=== PATIENT | female | born 1985 | race Two or more races ===

== ENCOUNTER → 2019-11-12 | Outpatient (REF) | payer OTHER ==
[2019-11-12 13:46] LABS: ALBUMIN 3.9 GM/DL (3.2-5.2); ALT/SGPT 26 U/L (12-78); BILIRUBIN,TOTAL 0.3 MG/DL (0.2-1.0); BLOOD UREA NITROGEN 21 MG/DL (7-18); CALCIUM LEVEL 8.5 MG/DL (8.5-10.1); CARBON DIOXIDE LEVEL 26 MEQ/L (21-32); CHLORIDE LEVEL 110 MEQ/L (98-107); CHOLESTEROL LEVEL 207 MG/DL (<200); CREATININE FOR GFR 0.84 MG/DL (0.55-1.30); FREE T4 0.93 NG/DL (0.76-1.46); GLOMERULAR FILTRATION RATE > 60.0 (>60); GLUCOSE, FASTING 89 MG/DL (70-100); HDL CHOLESTEROL 79 MG/DL (>40); LDL CHOLESTEROL 118 MG/DL (<100); NON-HDL-C 128 MG/DL; POTASSIUM SERUM 4.3 MEQ/L (3.5-5.1); SODIUM LEVEL 141 MEQ/L (136-145); TOTAL PROTEIN 6.5 GM/DL (6.4-8.2); TRIGLYCERIDES LEVEL 52 MG/DL (<150)
[2019-11-12 13:49] LABS: TOTAL 25(OH) VITAMIN D 38.6 NG/ML (30.0-100.0)
[2019-11-12 14:29] LABS: HEMOGLOBIN 12.8 g/dl (12.0-15.5); MEAN CORPUSCULAR HEMOGLOBIN 30.8 pg (27.0-33.0); MEAN CORPUSCULAR VOLUME 96.4 fl (80.0-96.0); RED BLOOD COUNT 4.15 10^6/uL (4.00-5.40)
[2019-11-12 14:52] LABS: PLATELET COUNT, AUTOMATED 94 10^3/uL (150-450); WHITE BLOOD COUNT 15.2 10^3/uL (4.0-10.0)
[2019-11-12 14:59] LABS: ANISOCYTOSIS 1+; ATYPICAL LYMPH 2 % (0-5); BASOPHILS 3 % (0-1); EOSINOPHILS 3 % (0-3); HYPOCHROMASIA 1+; LYMPHOCYTES 68 % (16-44); MONOCYTES 1 % (0-5); NEUTROPHILS 23 % (28-66)
[2019-11-12 15:00] LABS: BURR CELLS 1+; PLATELET ESTIMATE DECREASED (NORMAL)
== END ==
LOC: M LABDRWAD 12:29
PROVIDERS: ATTEND Physician Assistant
DX: Z13.220 Encounter for screening for lipoid disorders (principal); Z13.29 Encounter for screening for other suspected endocrine disorder; Z11.1 Encounter for screening for respiratory tuberculosis

== ENCOUNTER → 2020-02-14 | Outpatient (REF) | payer OTHER ==
[2020-02-14 14:47] LABS: FOLLICLE STIMULATING HORMONE 3.4 mIU/mL; FREE T4 0.91 NG/DL (0.76-1.46); LUTEINIZING HORMONE 5.5 mIU/mL; PROGESTERONE 30.01 NG/ML; PROLACTIN 7.2 NG/ML; THYROID STIMULATING HORMONE 4.79 uIU/ML (0.358-3.740)
== END ==
LOC: M PLALAB 12:04
PROVIDERS: ATTEND Specialist
DX: N92.6 Irregular menstruation, unspecified (principal)

== ENCOUNTER → 2020-04-08 | Outpatient (REF) | payer OTHER ==
[2020-04-08 18:14] LABS: BASO # 0.1 10^3/uL (0.0-0.2); BASO % 0.3 % (0.0-1.0); EOS # 0.2 10^3/uL (0.0-0.5); EOS % 1.1 % (0.0-3.0); HEMATOCRIT 37.8 % (36.0-47.0); HEMOGLOBIN 12.3 g/dl (12.0-15.5); LYMPH # 11.8 10^3/uL (1.5-5.0); LYMPH % 69.5 % (24.0-44.0); MEAN CORPUSCULAR HEMOGLOBIN 30.1 pg (27.0-33.0); MEAN CORPUSCULAR HGB CONC 32.5 g/dl (32.0-36.5); MEAN CORPUSCULAR VOLUME 92.6 fl (80.0-96.0); MONO # 0.3 10^3/uL (0.0-0.8); MONO % 1.9 % (0.0-5.0); NEUTROPHILS # 4.6 10^3/uL (1.5-8.5); PLATELET COUNT, AUTOMATED 106 10^3/uL (150-450); RED BLOOD COUNT 4.08 10^6/uL (4.00-5.40)
[2020-04-08 18:53] LABS: ALBUMIN 3.6 GM/DL (3.2-5.2); ALT/SGPT 21 U/L (12-78); BILIRUBIN,TOTAL 0.3 MG/DL (0.2-1.0); BLOOD UREA NITROGEN 18 MG/DL (7-18); CALCIUM LEVEL 8.7 MG/DL (8.5-10.1); CARBON DIOXIDE LEVEL 27 MEQ/L (21-32); CHLORIDE LEVEL 106 MEQ/L (98-107); CREATININE FOR GFR 0.74 MG/DL (0.55-1.30); FREE T4 0.87 NG/DL (0.76-1.46); GLOMERULAR FILTRATION RATE > 60.0 (>60); GLUCOSE, FASTING 68 MG/DL (70-100); SODIUM LEVEL 136 MEQ/L (136-145); TOTAL PROTEIN 6.6 GM/DL (6.4-8.2)
[2020-04-09 08:57] LABS: TOTAL 25(OH) VITAMIN D 46.6 NG/ML (30.0-100.0)
== END ==
LOC: M LABDRWAD 17:04
PROVIDERS: ATTEND Physician Assistant
DX: C91.10 Chronic lymphocytic leukemia of B-cell type not having achieved remission (principal); D69.6 Thrombocytopenia, unspecified; Z13.29 Encounter for screening for other suspected endocrine disorder

== ENCOUNTER → 2020-05-28 | Outpatient (REF) | payer OTHER ==
[2020-06-30 11:35] LABS: BASO # 0.1 10^3/uL (0.0-0.2); BASO % 0.5 % (0.0-1.0); EOS # 0.2 10^3/uL (0.0-0.5); EOS % 1.3 % (0.0-3.0); HEMATOCRIT 40.9 % (36.0-47.0); LYMPH # 9.6 10^3/uL (1.5-5.0); LYMPH % 71.3 % (24.0-44.0); MEAN CORPUSCULAR HEMOGLOBIN 31.3 pg (27.0-33.0); MEAN CORPUSCULAR HGB CONC 31.8 g/dl (32.0-36.5); MEAN CORPUSCULAR VOLUME 98.3 fl (80.0-96.0); MONO # 0.5 10^3/uL (0.0-0.8); MONO % 3.4 % (0.0-5.0); NEUTROPHILS # 3.1 10^3/uL (1.5-8.5); NEUTROPHILS % 23.4 % (36.0-66.0); PLATELET COUNT, AUTOMATED 121 10^3/uL (150-450); RED BLOOD COUNT 4.16 10^6/uL (4.00-5.40)
[2020-06-30 11:37] LABS: WHITE BLOOD COUNT 13.4 10^3/uL (4.0-10.0)
[2020-07-13 10:41] LABS: BLOOD UREA NITROGEN 29 MG/DL (7-18); CARBON DIOXIDE LEVEL 28 MEQ/L (21-32); CHLORIDE LEVEL 106 MEQ/L (98-107); CREATININE FOR GFR 0.81 MG/DL (0.55-1.30); GLOMERULAR FILTRATION RATE > 60.0 (>60); GLUCOSE, FASTING 89 MG/DL (70-100); POTASSIUM SERUM 4.8 MEQ/L (3.5-5.1); SODIUM LEVEL 140 MEQ/L (136-145)
[2020-07-13 10:42] LABS: ALBUMIN 3.8 GM/DL (3.2-5.2); ALT/SGPT 22 U/L (12-78); BILIRUBIN,TOTAL 0.2 MG/DL (0.2-1.0); CALCIUM LEVEL 9.4 MG/DL (8.5-10.1); CHOLESTEROL LEVEL 210 MG/DL (<200); FREE T4 0.88 NG/DL (0.76-1.46); HDL CHOLESTEROL 82 MG/DL (>40); LDL CHOLESTEROL 117 MG/DL (<100); NON-HDL-C 128 MG/DL; TOTAL 25(OH) VITAMIN D 52.3 NG/ML (30.0-100.0); TOTAL PROTEIN 6.9 GM/DL (6.4-8.2); TRIGLYCERIDES LEVEL 54 MG/DL (<150)
== END ==
LOC: M LABDRWAD 10:37
PROVIDERS: ATTEND Physician Assistant
DX: Z13.29 Encounter for screening for other suspected endocrine disorder (principal); Z13.220 Encounter for screening for lipoid disorders

== ENCOUNTER → 2021-03-18 | Outpatient (CLI) | payer OTHER ==
--- NOTE | 2021-03-18 15:32 | REP ---
INDICATION: LETICIA DIAG MAMMO/R BREAST LUMP. COMPARISON: None TECHNIQUE: Digital mammography was performed bilaterally in the CC and MLO projections using both 2D and 3D modalities. In addition, spot-compression views of the right breast were obtained slightly upper slightly outer retroareolar region over the site of a pea-sized palpable mass. Diagnostic ultrasonography was also performed in this region. Both Sandra and non Sandra views were obtained. FINDINGS: The breasts are symmetric in size and shape. There are no masses. There is no internal architectural distortion. There are no suspicious micro calcific clusters. There is no skin thickening or nipple retraction. Diagnostic digital magnified spot compression views of the right breast over the region of interest indicated by the technologist placing a triangular-shaped marker on the skin shows no abnormality. Diagnostic ultrasonography right breast region of interest shows a solid 2 x 0.5 x 0.7 cm size nodule. Color Doppler on this shows internal blood flow. Due to its close proximity to the underlying breast implant shear wave elastography could not be performed. The Volpara volumetric breast density pattern is b. IMPRESSION: BIRADS/ACR category 4. There is a solid right breast nodule seen ultrasonographically only at the site of a clinically palpable mass. Biopsy is recommended. This patient's Tyrer-Cuzick lifetime breast cancer risk assessment score is 10.8 %. This mammogram was interpreted with the aid of an FDA-approved computer-aided detection system. The patient states she had a clinical breast exam in February 2021. The patient letter being requested is M4 RECOMMENDATION: As above). <Electronically signed by Jose Alfredo Hill > 03/18/21 [id number]
== END ==
LOC: M WHC 13:28
PROVIDERS: ATTEND Specialist
DX: Z12.31 Encounter for screening mammogram for malignant neoplasm of breast (principal); N63.15 Unspecified lump in the right breast, overlapping quadrants; Z98.82 Breast implant status
CPT/HCPCS: 76642; 77066; G0279

== ENCOUNTER 2021-04-03 16:13 | Emergency (ER) | payer OTHER ==
[~2021-04-03] VITALS: Ht 170.2 cm; Wt 70.0 kg
[2021-04-03] MEDS ORDERED: PARO40TA2 (16:21)
[2021-04-03] MEDS ORDERED: CETI-24 (16:21)
[2021-04-03 18:40] LABS: HEMATOCRIT 41.8 % (36.0-47.0); HEMOGLOBIN 13.2 g/dl (12.0-15.5); MEAN CORPUSCULAR HEMOGLOBIN 30.4 pg (27.0-33.0); MEAN CORPUSCULAR HGB CONC 31.6 g/dl (32.0-36.5); MEAN CORPUSCULAR VOLUME 96.3 fl (80.0-96.0); PLATELET COUNT, AUTOMATED 104 10^3/uL (150-450); RED BLOOD COUNT 4.34 10^6/uL (4.00-5.40)
[2021-04-03 18:54] LABS: WHITE BLOOD COUNT 18.6 10^3/uL (4.0-10.0)
[2021-04-03 19:00] LABS: ALBUMIN 3.8 GM/DL (3.2-5.2); ALT/SGPT 24 U/L (12-78); BILIRUBIN,DIRECT 0.1 MG/DL (0.0-0.2); BILIRUBIN,TOTAL 0.3 MG/DL (0.2-1.0); LIPASE 123 U/L (73-393); TOTAL PROTEIN 6.9 GM/DL (6.4-8.2)
[2021-04-03 19:54] LABS: ATYPICAL LYMPH 5 % (0-5); BASOPHILS 1 % (0-1); EOSINOPHILS 1 % (0-3); LYMPHOCYTES 77 % (16-44); MONOCYTES 2 % (0-5); NEUTROPHILS 14 % (28-66)
[2021-04-03] MEDS ORDERED: PROMETHAZINE INJ 25 MG/ML VIAL (J2550) IV ONE (19:55)
[2021-04-03] MEDS ORDERED: NS 1,000 ML IV ONE (19:55)
[2021-04-03] MEDS ORDERED: MORPHINE 2 MG/ML 1ML VIAL (J2270) IV ONE (19:55)
[2021-04-03 20:02] LABS: OVALOCYTES 1+; POIKILOCYTOSIS 1+; SMUDGE CELLS 3+
[2021-04-03 20:03] LABS: PLATELET ESTIMATE NORMAL (NORMAL)
[2021-04-03 20:04] LABS: GIANT PLATELETS 1+
[2021-04-03 20:23] LABS: HCG, SERUM QUANTITATIVE < 1.0 MIU/ML
[2021-04-03] MEDS ORDERED: ISOVUE-370 76% 100ML VIAL As Ordered ONE (21:41)
--- NOTE | 2021-04-03 21:45 | REPVR ---
PROCEDURE INFORMATION: Exam: US Abdomen, Limited; Right Upper Quadrant Exam date and time: 04/03/2021 8:30 PM Age: 35 years old Clinical indication: Abdominal pain; Epigastric; Patient HX: Patient has melanoma, palp area felt adjacent to gb on Tuesday increase in pain since then; Additional info: R firm mass like area ruq, HX melanoma, cll TECHNIQUE: Imaging protocol: US abdomen. Real time ultrasound with image documentation. Limited exam focused on the right upper quadrant. COMPARISON: No relevant prior studies available. FINDINGS: Liver: The patient has a palpable area in the region of the anterior liver. In the anterior aspect of the right lobe of the liver is a 8.7 cm in transverse dimension by 5.9 cm in AP dimension oval masslike area. This is uniform echogenicity with the remainder of the liver. There is a suggestion of a central linear scar and this may represent a large area of focal nodular hyperplasia. Additional imaging with CT scan with contrast would be very helpful. The contrast should be dynamic with arterial, portal venous and delayed images. Common bile duct: The common bile duct is normal in size at 3 mm. Pancreas: Normal size pancreas. Right kidney: Normal appearing right kidney. Portal venous: There is venous return in the hepatic veins and portal veins. The gallbladder is contracted with no evidence of gallstones. IMPRESSION: 8.7 cm by 5.9 cm oval mass within the anterior aspect of the liver. Uniform echogenicity liver tissue but possible central linear scar. Suspect this is a area of focal nodular hyperplasia and recommend dynamic CT for further evaluation of this. Electronically signed by: Latrell Mccrary On 04/03/2021 21:45:10 PM
[2021-04-03] MEDS ORDERED: MORPHINE 4 MG/ML 1ML VIAL/SYRINGE (J2270) IV ONE (21:50)
[2021-04-03 22:03] LABS: LDH LACTATE DEHYDROGENASE 144 U/L (84-246)
[2021-04-03 22:52] LABS: INR 1.01; PROTHROMBIN TIME 13.5 SECONDS (12.5-14.3)
[2021-04-03 22:53] LABS: PARTIAL THROMBOPLASTIN TIME 25.2 SECONDS (24.2-38.5)
--- NOTE | 2021-04-03 23:25 | REPVR ---
PROCEDURE INFORMATION: Exam: CT Abdomen And Pelvis With Contrast Exam date and time: 04/03/2021 10:19 PM Age: 35 years old Clinical indication: Abdominal pain; Localized; Right upper quadrant (ruq); Additional info: Mod/sev ruq pain, palpab; E mass like area, HX cll, melanoma TECHNIQUE: Imaging protocol: Computed tomography of the abdomen and pelvis with contrast. Axial, coronal and sagittal reformatted images were created and reviewed. Radiation optimization: All CT scans at this facility use at least one of these dose optimization techniques: automated exposure control; mA and/or kV adjustment per patient size (includes targeted exams where dose is matched to clinical indication); or iterative reconstruction. Contrast material: ISOVUE 370; Contrast volume: 100 ml; Contrast route: INTRAVENOUS (IV); COMPARISON: GALLBLADDER US 04/03/2021 8:15 PM FINDINGS: Liver: 8.9 x 6.8 cm lobular hyperdense lesion in the left hepatic lobe with a central hypodense scar, corresponding to the abnormality seen on the prior ultrasound. 1.3 cm hypervascular lesion in the right hepatic lobe, possibly a flash filling hemangioma. Scattered subcentimeter hypervascular possibly, also likely flash filling hemangiomata. Gallbladder and bile ducts: No radiodense gallstones. No biliary ductal dilatation. Pancreas: Unremarkable. Spleen: Unremarkable. Adrenal glands: Normal. No mass. Kidneys and ureters: No mass. No radiodense calculi. No hydronephrosis. Stomach and bowel: No bowel wall thickening. No obstruction. No pneumatosis. Appendix: Normal. Intraperitoneal space: Trace nonspecific free pelvic fluid, likely physiologic. No organized fluid collection. No free air. Vasculature: Unremarkable. No aneurysm. Lymph nodes: No pathologically enlarged lymph nodes. Urinary bladder: Mild circumferential urinary bladder wall thickening, possibly secondary to underdistention. Reproductive: Unremarkable. Bones/joints: No acute osseous abnormality. Soft tissues: Breast implants in place. IMPRESSION: 1. 8.9 x 6.8 cm lobular hyperdense lesion in the left hepatic lobe with a central hypodense scar, corresponding to the abnormality seen on the prior ultrasound. Findings are strongly suggestive of focal nodular hyperplasia. 2. Scattered hypervascular hepatic lesions, as described above, possibly secondary to flash filling hemangiomata. Given the patient's history of malignancy, MRI is suggested for further evaluation. 3. Additional findings, as above. Electronically signed by: Macario Alva On 04/03/2021 23:25:14 PM
[2021-04-03] MEDS ORDERED: KETO10TAB PO (23:37)
[2021-04-03] MEDS ORDERED: traMADol 50 MG TAB PO ONE (23:40)
[2021-04-03] MEDS ORDERED: TRAM50TA2 PO (23:41)
[2021-04-04 00:08] VITALS: BP 124/78
--- NOTE | 2021-04-04 11:25 | ED PDOC ---
Post-Departure Follow-Up dr marroquin and [facility] oncology faxed report of gb us and ct abd/p for fu lmlg Kim Hernandez MD Apr 04, 2021 11:25
== END 2021-04-04 00:13 | disposition home or self-care (01) ==
LOC: M ED 16:13
DX: R10.11 Right upper quadrant pain (principal); M54.5 Low back pain; K76.89 Other specified diseases of liver; Z85.820 Personal history of malignant melanoma of skin; Z88.0 Allergy status to penicillin
CPT/HCPCS: 36415; 74177; 76705; 80047; 80076; 81001; 83615; 83690; 84702; 85025; 85610; 85730; 96361; 96374; 96375; 96376; 99284; J2270; Q9967

== ENCOUNTER → 2021-04-09 | Outpatient (CLI) | payer OTHER ==
[~2021-04-09] MED LIST: CETI-24; KETO10TAB PO; PARO40TA2; TRAM50TA2 PO
[2021-04-09 11:37] LABS: ALBUMIN 4.1 GM/DL (3.2-5.2); ALT/SGPT 25 U/L (12-78); BILIRUBIN,TOTAL 0.3 MG/DL (0.2-1.0); BLOOD UREA NITROGEN 21 MG/DL (7-18); CALCIUM LEVEL 9.2 MG/DL (8.5-10.1); CARBON DIOXIDE LEVEL 30 MEQ/L (21-32); CHLORIDE LEVEL 106 MEQ/L (98-107); CREATININE FOR GFR 0.82 MG/DL (0.55-1.30); GLOMERULAR FILTRATION RATE > 60.0 (>60); GLUCOSE, FASTING 82 MG/DL (70-100); POTASSIUM SERUM 4.9 MEQ/L (3.5-5.1); SODIUM LEVEL 138 MEQ/L (136-145); TOTAL PROTEIN 6.9 GM/DL (6.4-8.2)
--- NOTE | 2021-04-09 11:53 | REP ---
INDICATION: ENCOUNTER FOR OTHER PREPROCEDURAL EXAMINATION. COMPARISON: None. FINDINGS: The superior mediastinal structures are midline. The cardiac silhouette is unremarkable in size, shape, and position. The diaphragmatic surfaces of the lungs are regular, and the costophrenic angles are clear. The pulmonary davies are clear. The imaged osseous structures are intact. IMPRESSION: There is no acute cardiopulmonary disease. <Electronically signed by Jose Alfredo Hill > 04/09/21 [id number]
== END ==
LOC: M LAB 10:27
PROVIDERS: ATTEND Physician Assistant
DX: Z01.818 Encounter for other preprocedural examination (principal)

== ENCOUNTER 2021-04-28 06:03 | Day surgery (SDC) | payer OTHER ==
[~2021-04-28] VITALS: Ht 170.2 cm; Wt 71.6 kg
[~2021-04-28 06:03] MED LIST changes: +CLINDAMYCIN 900 MG in IV 1 EA IV ONE; +LR 1,000 ML IV ONE
[2021-04-28] MEDS ORDERED: HEPARIN SOD (PORCINE) 5000UNITS/ML 1ML VIAL/SYRINGE SQ ONE (06:45)
[2021-04-28] MEDS ORDERED: MIDAZOLAM INJ 2MG/2ML VIAL (J2250 PER 1MG) As Ordered ONE (07:00)
[2021-04-28] MEDS ORDERED: fentaNYL 100 MCG/2 ML INJECTION (J3010) As Ordered ONE (07:01)
[2021-04-28] MEDS ORDERED: LIDOCAINE 2% 100MG/5ML SDV (FOR ANES.) As Ordered ONE (07:05)
[2021-04-28] MEDS ORDERED: LIDOCAINE 1% SDV 30ML VIAL As Ordered ONE (07:12)
[2021-04-28] MEDS ORDERED: BUPIVACAINE HCL 0.25% 30ML VIAL As Ordered ONE (07:12)
[2021-04-28] MEDS ORDERED: SCOPOLAMINE 1MG TRANSDERMAL PATCH TOP ONE (07:15)
[2021-04-28] MEDS ORDERED: ACETAMINOPHEN 1000MG 100ML IV BTL (OFIRMEV) (J0131 PER 10MG) As Ordered ONE (07:44)
[2021-04-28] MEDS ORDERED: METOCLOPRAMIDE INJ 10MG/2ML VIAL (J2765 PER 1) As Ordered ONE ×2 (07:45→07:59)
[2021-04-28] MEDS ORDERED: propofoL 200 MG/20 ML VIAL As Ordered ONE (07:58)
[2021-04-28] MEDS ORDERED: dexameTHASONE 4 MG/ML 1ML VIAL (J1100 PER 1MG) As Ordered ONE (07:59)
[2021-04-28] MEDS ORDERED: ONDANSETRON 4MG/2ML VIAL As Ordered ONE (07:59)
[2021-04-28] MEDS ORDERED: KETOROLAC 60MG 2ML VIAL As Ordered ONE (08:25)
[2021-04-28] MEDS ORDERED: LR 1,000 ML IV SCH (08:45)
[2021-04-28] MEDS ORDERED: MEPERIDINE INJ 25 MG/ML VIAL (J2175) IV PRN (08:45)
[2021-04-28] MEDS ORDERED: oxyCODONE 5MG TAB PO PRN (08:45)
[2021-04-28] MEDS ORDERED: fentaNYL 100 MCG/2 ML INJECTION (J3010) IV PRN (08:45)
[2021-04-28] MEDS ORDERED: ONDANSETRON 4MG/2ML VIAL IV PRN (08:45)
[2021-04-28] MEDS: PROMETHAZINE INJ 25 MG/ML VIAL (J2550) IV PRN ×2 (09:06→09:11)
[2021-04-28] MEDS ORDERED: ZOFR4TAB16 PO (09:06)
[2021-04-28] MEDS ORDERED: ULTR50TA8 PO (09:06)
[2021-04-28 10:21] VITALS: BP 121/83
--- NOTE | 2021-04-28 20:08 | ROOPDOC ---
[facility] Report Of Operation Report of Operation DATE OF PROCEDURE: 04/28/21 PREPROCEDURE DIAGNOSES: right breast suspicious palpable mass POSTPROCEDURE DIAGNOSES: same PROCEDURE PERFORMED: Right breast excisional biopsy - palpation and ultrasound guided SURGEON: Dr Gerda Noble ANESTHESIA: general ESTIMATED BLOOD LOSS: Approximately 5 mL. COMPLICATIONS: none FINDINGS: hypoechoic mass was confirmed to be present in excised specimen with intraop US DESCRIPTION OF PROCEDURE: INDICATIONS: Ms. Christopher is a 36-year-old woman with a Hx of bilateral breast augmentation who noted a palpable mass in her right breast. Diagnostic imaging was done and a hypoechoic mass was found on the sonography at 11:00 2 CFN. This was considered suspicious and biopsy was recommended. Since patient has breast implants and minimal amount of tissue surrounding the palpable mass, I offered patient palpation guided excisional biopsy. She was medically cleared for surgery by her primary care doctor. Risks and possible complications of surgical procedure including bleeding, infection and injury to surrounding structures were explained to the patient and she wished to proceed. Consent was signed. My initials were placed on the op erative site. Subcutaneous injection of 5000 units of heparin was done in Preop. I marked the palpable mass in the preop. Patient confirmed location of the palpable mass at 11:00 2CFN. DETAILS: Patient was taken to the operating room and placed on the operating room table. A sign in was called stating patients name, date of and the procedure to be done. Preoperative antibiotics were infused. Smooth induction of general anesthesia was done. Patients hands were extended on arm rests. Care was taken not to over extend the arms. Pillow was placed under the knees and a foam was placed under the heels. Sequential compression devices were placed and assured to function correctly. Patients right breast and axilla were prepped and draped in the usual fashion. Appropriate time out was done again prior second part of the procedure. Patients name, date of , and the procedure to be done were confirmed. Next, local anesthetic using 1% lidocaine and 0.25 % Marcaine 50/50 mix was injected at the site of planned superior right periareolar incision. Care was taken to inject the local anesthetic superficially to avoid possibility of implant puncture. Intraop ultrasound was used to confirm location of the hypoechoic mass. This was identified at 11:00 2 CFN and correlates with location of palpable mass previously marked on the skin. The incision was made with the scalpel. Subcutaneous skin flaps were raised. Dissection was guided with palpation and with intraop ultrasound. The palpable mass was excised with a small margin of normal tissue. Intraop ultrasound was used to confirm that the specimen contains the hypoechoic lesion which was initially seen on the diagnostic ultrasound. The specimen measured The excisional biopsy specimen was carefully removed from the breast keeping its proper orientation and moved to the back table where margins were marked with the surgical inking kit following the standard colors recommendations. No intraop radiography was done as the sonographic lesion was not seen clearly on mammogram and there was no marking clip in the specimen. The specimen was labeled with patients name and right excisional biopsy and sent to pathology. Next, the wound was irrigated thoroughly and adequate hemostasis was assured. Additional local anesthetic was injected into surrounding tissues making sure that the needle is away from the underlying implant. space was approximated with 2-0 Vicryl. The dermis was closed with 3-0 Vicryl and skin was closed with 4-0 Monocryl. Surgical glue was placed over the incision. Patient emerged from the anesthesia without any problems. Fluffs were placed over the operative site and patients chest was wrapped snuggly in the VALENTIN wrap. Sponge and instrument counts were done and were correct. Patient tolerated procedure well and was taken to recovery unit in stable condition. GERDA NOBLE DO Apr 28, 2021 20:08
== END 2021-04-28 10:24 | disposition home or self-care (01) ==
LOC: M SDC 06:03
PROVIDERS: ATTEND Surgery
DX: D24.1 Benign neoplasm of right breast (principal); R16.0 Hepatomegaly, not elsewhere classified; D69.3 Immune thrombocytopenic purpura; C91.10 Chronic lymphocytic leukemia of B-cell type not having achieved remission; F41.1 Generalized anxiety disorder; F32.9 Major depressive disorder, single episode, unspecified; Z88.0 Allergy status to penicillin; Z88.1 Allergy status to other antibiotic agents; Z79.899 Other long term (current) drug therapy; Z79.891 Long term (current) use of opiate analgesic
CPT/HCPCS: 19101; 36415; 81025; 86850; 86900; 86901; 88307; J0131; J1100; J1644; J1885; J2250; J2405; J2765; J3010

== ENCOUNTER → 2021-08-24 | Outpatient (REF) | payer OTHER ==
[~2021-08-24] MED LIST changes: -CLINDAMYCIN 900 MG in IV 1 EA IV ONE; -LR 1,000 ML IV ONE; +ULTR50TA8 PO; +ZOFR4TAB16 PO
[2021-08-24 17:14] LABS: HEMATOCRIT 31.6 % (36.0-47.0); MEAN CORPUSCULAR HEMOGLOBIN 30.5 pg (27.0-33.0); MEAN CORPUSCULAR HGB CONC 31.6 g/dl (32.0-36.5); MEAN CORPUSCULAR VOLUME 96.3 fl (80.0-96.0); PLATELET COUNT, AUTOMATED 215 10^3/uL (150-450); RED BLOOD COUNT 3.28 10^6/uL (4.00-5.40); WHITE BLOOD COUNT 12.4 10^3/uL (4.0-10.0)
[2021-08-24 17:27] LABS: ALBUMIN 3.2 GM/DL (3.2-5.2); ALT/SGPT 81 U/L (12-78); BILIRUBIN,DIRECT < 0.1 MG/DL (0.0-0.2); BILIRUBIN,TOTAL 0.4 MG/DL (0.2-1.0); BLOOD UREA NITROGEN 10 MG/DL (7-18); CARBON DIOXIDE LEVEL 32 MEQ/L (21-32); CHLORIDE LEVEL 105 MEQ/L (98-107); CREATININE FOR GFR 0.76 MG/DL (0.55-1.30); GLOMERULAR FILTRATION RATE > 60.0 (>60); GLUCOSE, FASTING 99 MG/DL (70-100); PHOSPHORUS LEVEL 4.1 MG/DL (2.5-4.9); POTASSIUM SERUM 4.4 MEQ/L (3.5-5.1); SODIUM LEVEL 142 MEQ/L (136-145); TOTAL PROTEIN 5.9 GM/DL (6.4-8.2)
== END ==
LOC: M LABDRWAD 16:24
PROVIDERS: ATTEND Nurse Practitioner Family
DX: R16.0 Hepatomegaly, not elsewhere classified (principal)